=== PATIENT | male | born 1980 | race Caucasian/White ===

== ENCOUNTER 2016-11-13 05:33 | Emergency (ER) | payer OTHER ==
[~2016-11-13] VITALS: Ht 175.3 cm; Wt 90.7 kg
[2016-11-13 05:33] VITALS: BP_SYST 122
--- NOTE | 2016-11-13 05:33 | NUR ---
Patient to ER bed 6 to gown for evaluation. Side rails up.
--- NOTE | 2016-11-13 05:35 | NUR ---
Pt in bed 6 with c/o lower abdominal pain and diarrhea on and off x [address] Ramsey made aware.
--- NOTE | 2016-11-13 06:01 | NUR ---
ER at bedside examining patient.
--- NOTE | 2016-11-13 06:41 | NUR ---
Patient transported to radiology via , accompanied by DIRECTOR PRESALES.
[2016-11-13] MEDS ORDERED: NACL 0.9% 1,000 ML IV ONE (06:45)
[2016-11-13] MEDS ORDERED: HYDROmorphone 2 MG/ML VIAL IVP ONE (06:45)
[2016-11-13] MEDS ORDERED: ONDANSETRON HCL 4 MG/2 ML VIAL IVP ONE (06:45)
--- NOTE | 2016-11-13 06:52 | NUR ---
Returned from radiology, back to [facility].
--- NOTE | 2016-11-13 06:55 | NUR ---
# 20 gauge angiocath placed to LAC. Use of asceptic technique. Opsite placed over site. Blood return noted. Blood for lab drawn from site. Flushed with 10 cc of normal saline. No evidence of infiltration noted. Patient tolerated well.
[2016-11-13 07:07] LABS: BASOPHILS # (AUTO) 0.1 K/uL (0.0-0.2); CALCIUM 8.4 mg/dL (8.4-11.0); CREATININE 0.9 mg/dL (0.55-1.30); EOSINOPHILS # (AUTO) 0.1 K/uL (0.0-0.4); EOSINOPHILS % (AUTO) 0.9 % (0.0-4.0); HEMOGLOBIN 8.5 g/dL (14.0-18.0); LYMPHOCYTES # (AUTO) 1.7 K/uL (1.0-5.5); LYMPHOCYTES % (AUTO) 20.2 % (20.5-51.5); MEAN CORPUSCULAR HEMOGLOBIN 19 pg (27-31); MEAN CORPUSCULAR HGB CONC 30 % (32-36); MEAN CORPUSCULAR VOLUME 62 fL (79.0-98.0); MONOCYTES # (AUTO) 0.5 K/uL (0.0-1.0); MONOCYTES % (AUTO) 6.2 % (1.7-9.3); NEUTROPHILS # (AUTO) 5.9 K/uL (1.8-7.7); NEUTROPHILS % (AUTO) 71.7 % (40.0-70.0); PLATELET COUNT (AUTO) 710 K/uL (130-430); POTASSIUM 3.9 mmol/L (3.5-5.1); RED BLOOD CELL COUNT(AUTO) 4.51 MIL/uL (4.2-6.2); RED CELL DISTRIBUTION WIDTH 16.2 % (9.0-15.0); WHITE BLOOD COUNT (AUTO) 8.3 K/uL (4.8-10.8)
[2016-11-13 07:11] LABS: ALBUMIN 3.8 g/dL (3.4-4.8); TOTAL BILIRUBIN 0.3 mg/dL (0.0-1.0); TOTAL PROTEIN, SERUM 7.7 g/dL (6.4-8.3)
[2016-11-13] MEDS ORDERED: HYDROmorphone 1 MG INJ. 1 MG/ML AMPUL IVP ONE (08:45)
--- NOTE | 2016-11-13 08:48 | NUR ---
Pt medicated per MD orders.
[2016-11-13 09:30] VITALS: BP_SYST 127
--- NOTE | 2016-11-13 09:30 | NUR ---
Patient given written and verbal discharge instructions and verbalizes understanding. ER MD discussed with patient the results and treatment provided. Patient in stable condition. ID arm band removed. IV catheter removed intact and dressing applied, no active bleeding. Rx of Tylenol #3, Zofran given. Patient educated on pain management and to follow up with PMD. Pain Scale 2/10. Opportunity for questions provided and answered.
== END 2016-11-13 09:30 | disposition home or self-care (01) ==
LOC: SED 05:33
DX: N20.0 Calculus of kidney (principal); D64.9 Anemia, unspecified; Z90.49 Acquired absence of other specified parts of digestive tract
CPT/HCPCS: 36415; 74176; 80053; 83690; 85025; 96361; 96374; 96375; 96376; 99285; J1170 ×2; J2405; J7030